=== PATIENT | male | born 1980 | race Caucasian/White ===

== ENCOUNTER 2019-11-29 15:31 | Emergency (ER) | payer MEDICAID ==
[~2019-11-29] VITALS: Ht 147.3 cm; Wt 49.9 kg
[2019-11-29 16:01] VITALS: BP 135/84
--- NOTE | 2019-11-29 17:46 | NUR ---
PT AMBULATED TO BED 4.
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
--- NOTE | 2019-11-29 18:24 | NUR ---
PT RESTING COMFORTABLY, EYES CLOSED, BREATHING REGULAR, VS STABLE.
--- NOTE | 2019-11-29 19:09 | NUR ---
RECEIVED REPORT FROM DEREJE DONNELLY. WILL CONT CARE AT THIS TIME.
--- NOTE | 2019-11-29 19:09 | NUR ---
REPORT GIVEN TO DEREJE WESTBROOK FOR CHANGE OF SHIFT .
--- NOTE | 2019-11-29 19:47 | NUR ---
ERMD AT BEDSIDE TO EVAL PT.
[2019-11-29] MEDS ORDERED: BACITRACIN OINT 500 UNITS/GM PKT TP ONE (19:50)
--- NOTE | 2019-11-29 19:52 | NUR ---
PULLED BACATRACIN OINT AND GAVE TO SONIYA ARDON TO ADMINSTER FOR WOUND CARE PER SANJEEV CLANCY ORDER.
[2019-11-29] MEDS ORDERED: KETOROLAC 60 MG/2 ML VIAL IM ONE (20:00)
--- NOTE | 2019-11-29 20:23 | NUR ---
TDAP FORM SIGN BY PT. DONY REYEZ, ADMINSTER MED ON RT DELTOID.
[2019-11-29 20:39] VITALS: BP 135/84
--- NOTE | 2019-11-29 20:39 | NUR ---
Patient discharged with v/s stable. Written and verbal after care instructions given and explained. Patient alert, oriented and verbalized understanding of instructions. Ambulatory with steady gait. All questions addressed prior to discharge. ID band removed. Patient advised to follow up with PMD. Rx of BACTRIM, MOTRIN, AND TRAMADOL given. Patient educated on indication of medication including possible reaction and side effects. Opportunity to ask questions provided and answered.
== END 2019-11-29 20:39 | disposition home or self-care (01) ==
LOC: MED 15:31
DX: S61.305A Unspecified open wound of left ring finger with damage to nail, initial encounter (principal); X58.XXXA Exposure to other specified factors, initial encounter; Y93.89 Activity, other specified; Y92.89 Other specified places as the place of occurrence of the external cause; Y99.8 Other external cause status
CPT/HCPCS: 73130; 90471; 90715; 96372; 99283; J1885